=== PATIENT | male | born 1970 ===

== ENCOUNTER → 2017-11-21 | Outpatient (CLI) | payer SELFPAY ==
[~2017-11-21] MED LIST: WARF5TAB23 PO
== END ==
LOC: AMB 23:45
PROVIDERS: ATTEND Nurse Practitioner
DX: M25.512 Pain in left shoulder (principal); Y35.893A Legal intervention involving other specified means, suspect injured, initial encounter; Y92.149 Unspecified place in prison as the place of occurrence of the external cause
CPT/HCPCS: A0425; A0429

== ENCOUNTER 2017-11-22 00:39 | Emergency (ER) | payer SELFPAY ==
[2017-11-22] MEDS ORDERED: ALBUTEROL/IPRATROPIUM 3 ML NEB NEB ONE (00:45)
[2017-11-22] MEDS ORDERED: WARF5TAB23 PO (00:51)
--- NOTE | 2017-11-22 00:56 | ER Report ---
History and Physical Time Seen By MD: 00:45 HPI/ROS CHIEF COMPLAINT: Left shoulder pain HISTORY OF PRESENT ILLNESS: Patient is a 47-year-old male with reported alcohol intoxication here for usp clearance after being arrested by police for driving while intoxicated. Patient reportedly follow-up with police and was subsequently tased causing increased shoulder pain of his left shoulder. Patient reportedly has had prior reconstructive surgery in the shoulder. Patient also has a history of lung disease and is noted to have decreased oxygen saturation levels at time of evaluation. Patient is afebrile, otherwise hemodynamically stable. REVIEW OF SYSTEMS: Constitutional: No fever, no chills, + intoxication Eyes: No discharge. ENT: No sore throat. Cardiovascular: No chest pain, no palpitations. Respiratory: No cough, no shortness of breath. Gastrointestinal: No abdominal pain, no vomiting. Genitourinary: No hematuria. Musculoskeletal: + left shoulder pain with movement and palpation Skin: No rashes. Neurological: No headache. Allergies: Coded Allergies: amoxicillin (Verified Allergy, Unknown, 11/22/17) Home Meds Reported Medications Warfarin Sodium (WARFARIN SODIUM) 5 Mg Tablet, 8 MG PO QDAY, TAB 11/22/17 Constitutional Vital Sign - Last 24 Hours 11/22/17 11/22/17 11/22/17 11/22/17 00:39 00:43 00:47 00:47 Temp 100.0 Pulse 98 105 100 Resp 16 16 B/P (MAP) 143/100 Pulse Ox 83 86 90 O2 Delivery Room Air Nasal Cannula O2 Flow Rate 1.0 11/22/17 11/22/17 11/22/17 11/22/17 00:54 01:00 01:09 01:10 Pulse 95 97 108 Resp 16 B/P (MAP) 117/103 (108) Pulse Ox 99 91 11/22/17 01:24 Pulse 100 Pulse Ox 91 Physical Exam General Appearance: The patient is alert, has no immediate need for airway protection and no signs of toxicity. + Intoxicated Eyes: Pupils equal and round, + right conjunctival injection ENT, Mouth: Mucous membranes are moist. Respiratory: There are no retractions, lungs are clear to auscultation. Cardiovascular: Regular rate and rhythm. Gastrointestinal: Abdomen is soft and non tender, no masses, bowel sounds normal. Neurological: No focal deficits Skin: Warm and dry, no rashes. Musculoskeletal: + left shoulder pain with palpation and mild ROM testing Extremities are nontender, nonswollen and have full range of motion. DIFFERENTIAL DIAGNOSIS: After history and physical exam differential diagnosis was considered for shoulder injury, rotator cuff tear, dislocation, fracture Medical Decision Making EKG/Imaging Imaging CHEST PA AND LAT COMPARISONS: None. ADDITIONAL PERTINENT HISTORY: Pain FINDINGS: Cardiomediastinal silhouette: Negative. Pulmonary vasculature: Negative. Lung jefferson: Negative. Pleural spaces: Negative. Osseous structures: Negative. Surrounding soft tissues: Negative. IMPRESSION: No evidence of acute cardiopulmonary disease. SHOULDER MIN 2 VIEWS LEFT COMPARISONS: None. ADDITIONAL PERTINENT HISTORY: Pain FINDINGS: Osseous structures: Negative. Joint spaces: Negative. Surrounding soft tissues: Negative. IMPRESSION: Normal views of the left shoulder. ED Course/Re-evaluation ED Course Patient is a 47-year-old male here with complaints of left shoulder pain after being tased by police after [facility] for driving while under the influence. Patient is visibly intoxicated at time of arrival, currently in handcuffs complaining of left anterior shoulder pain and pain with range of motion. There is no obvious deformity at time of evaluation however the patient does have history of left shoulder reconstruction. Patient was also noted to have decreased oxygen saturation levels in the setting of prior lung disease and history of pulmonary embolisms however the patient denies shortness breath, chest pain or chest tightness. X-ray imaging of the left shoulder and chest were obtained and showed no acute fractures, dislocations or findings of infection.. Patient was initially placed on 1 L nasal cannula of oxygen to increase oxygen levels then was titrated to room air with oxygen levels of 94%. Patient gave verbal consent for blood draw for ETOH levels to be drawn. DuoNeb treatment was administered. Patient was discharged in police custody in stable condition. Decision to Disposition Date: Nov 22, 2017 Decision to Disposition Time: 02:00 Depart Departure Latest Vital Signs Vital Signs Date Time Temp Pulse Resp B/P (MAP) Pulse Ox O2 Delivery O2 Flow Rate FiO2 11/22/17 01:24 100 91 11/22/17 01:10 117/103 (108) 11/22/17 01:00 16 11/22/17 00:47 Nasal Cannula 1.0 11/22/17 00:43 100.0 Impression: Primary Impression: ALCOHOL USE, UNSPECIFIED WITH INTOXICATION, UNCOMPLICATED Additional Impression: PAIN IN LEFT SHOULDER Condition: Improved [facility] Patient Instructions: Abuse of Alcohol (ED) Additional Instructions: Please consider alcohol cessation. Problem Qualifiers RONAK MENDEZ DO Nov 22, 2017 00:56
[2017-11-22] MEDS: KETOROLAC 60 MG/2 ML VIAL IM ONE ×2 (01:12→02:01)
--- NOTE | 2017-11-22 01:24 | RADIOLOGY IMAGING REPORT ---
FACILITY: [facility] PATIENT NAME: Han Ramirez : 1970 MR: [id number] V: [id number] EXAM DATE: ORDERING PHYSICIAN: RONAK MENDEZ TECHNOLOGIST: Location: [facility] Patient: Han Ramirez : 1970 Visit/Account:[id number] Date of Sevice: 11/22/2017 SHOULDER MIN 2 VIEWS LEFT COMPARISONS: None. ADDITIONAL PERTINENT HISTORY: Pain FINDINGS: Osseous structures: Negative. Joint spaces: Negative. Surrounding soft tissues: Negative. IMPRESSION: Normal views of the left shoulder. Report Dictated By: Lamin Spicer MD at 11/22/2017 1:20 AM Report E-Signed By: Lamin Spicer MD at 11/22/2017 1:21 AM WSN:[id number]
--- NOTE | 2017-11-22 01:26 | RADIOLOGY IMAGING REPORT ---
FACILITY: [facility] PATIENT NAME: Han Ramirez : 1970 MR: [id number] V: [id number] EXAM DATE: ORDERING PHYSICIAN: RONAK MENDEZ TECHNOLOGIST: Location: [facility] Patient: Han Ramirez : 1970 Visit/Account:[id number] Date of Sevice: 11/22/2017 CHEST PA AND LAT COMPARISONS: None. ADDITIONAL PERTINENT HISTORY: Pain FINDINGS: Cardiomediastinal silhouette: Negative. Pulmonary vasculature: Negative. Lung jefferson: Negative. Pleural spaces: Negative. Osseous structures: Negative. Surrounding soft tissues: Negative. IMPRESSION: No evidence of acute cardiopulmonary disease. Report Dictated By: Lamin Spicer MD at 11/22/2017 1:21 AM Report E-Signed By: Lamin Spicer MD at 11/22/2017 1:22 AM WSN:[id number]
[2017-11-22 02:04] VITALS: BP 147/103
== END 2017-11-22 02:13 ==
LOC: ER 00:42
DX: F10.920 Alcohol use, unspecified with intoxication, uncomplicated (principal); M25.512 Pain in left shoulder; R09.02 Hypoxemia
CPT/HCPCS: 71046; 73030; 94640; 96372; 99001; 99283; J1885; J7620